=== PATIENT | female | born 1975 | race Caucasian/White ===

== ENCOUNTER 2019-03-04 18:42 | Emergency (ER) | payer OTHER ==
[2019-03-04] MEDS ORDERED: OXYCODONE-ACETAMINOPHEN 5-325 MG TABLET PO ONE (19:00)
--- NOTE | 2019-03-04 20:07 | RADIOLOGY REPORT (SQ) ---
EXAM DESCRIPTION: SHOULDER LEFT 2 OR MORE VIEWS COMPLETED DATE/TIME: 03/04/2019 7:16 pm REASON FOR STUDY: fall injury COMPARISON: None. NUMBER OF VIEWS: Three views. TECHNIQUE: Internal rotation, external rotation, and Y view images acquired of the left shoulder. LIMITATIONS: None. FINDINGS: MINERALIZATION: Normal. BONES: Fracture of the humeral head -greater tuberosity and anterior- inferior glenohumeral dislocati on. VISUALIZED LUNGS AND RIBS: No pneumothorax. No rib fracture. SOFT TISSUES: No radiopaque foreign body. OTHER: No other significant finding. IMPRESSION: Fracture of the humeral head -greater tuberosity and anterior- inferior glenohumeral dis location. TECHNICAL DOCUMENTATION: JOB ID: [id number] [place]-72 2010 [employer]- All Rights Reserved Reading location - IP/workstation name: [email or web address]
[2019-03-04] MEDS ORDERED: NORMAL SALINE 1000 ML 1,000 ML IV ONE (20:13)
[2019-03-04] MEDS ORDERED: ONDANSETRON HCL INJ/PF 4 MG/2 ML SDV IV ONE (20:13)
[2019-03-04] MEDS ORDERED: FENTANYL CITRATE INJ/PF 100 MCG/2 ML AMPUL IV ONE (20:13)
[2019-03-04] MEDS ORDERED: PROPOFOL INJ 200 MG/20 ML VIAL IV ONE ×2 (20:27→21:22)
--- NOTE | 2019-03-04 20:29 | ER Document Report ---
ED General - General Chief Complaint: Shoulder Injury Stated Complaint: DISLOCATED SHOULDER Time Seen by Provider: 03/04/19 18:59 Primary Care Provider: DOROTHEA FLOYD MD [ACTIVE PROVISIONAL STAFF] - Follow up tomorrow (local orthopedic surgeon ) Notes: Patient is a 43-year-old female that presents to the emergency department for chief complaint of left arm injury. Patient reports shortly prior to ED arrival, she was in the bathtub, went to reach for some soap, held on with a towel rack with her right arm, when she reached with her left, the towel rack gave way, and she landed back on her left arm, she felt severe pain as soon as her body came down on her arm. She is been having severe pain since then, currently rates it as a 10 out of 10 in her left shoulder. She is right-handed. She describes the pain as a constant throbbing and aching sensation. Denies prior injury to that shoulder. She last ate at 1 PM today. Denies any numbness, tingling or weakness in her arm, only the pain. Denies any other injuries, denies head injury or neck injury. Past Medical History: Hypothyroidism Past Surgical History: Denies any recent or pertinent surgical history Social History: Denies tobacco, alcohol or drug use. Family History: Reviewed and noncontributory for presenting illness Allergies: Reviewed, see documented allergy list. REVIEW OF SYSTEMS: Other than noted above, the 12 point review of systems was reviewed with the patient and were negative, all pertinent findings are included in the HPI. PHYSICAL EXAMINATION: Vital signs reviewed, nursing noted reviewed. GENERAL: Patient is obese, appears to be in significant pain. HEAD: Atraumatic, normocephalic. EYES: Eyes appear normal, extraocular movements intact, sclera anicteric, conjunctiva are normal. ENT: nares patent, oropharynx clear without exudates. Moist mucous membranes. NECK: Normal range of motion, supple without lymphadenopathy LUNGS: Breath sounds clear to auscultation bilaterally and equal. No wheezes rales or rhonchi. HEART: Regular rate and rhythm without murmurs ABDOMEN: Soft, nontender, normoactive bowel sounds. No rebound, guarding, or rigidity. No masses appreciated. EXTREMITIES: Gross deformity to the left shoulder, with significant tenderness to palpation, no ecchymosis, or lacerations noted. Pain with any minimal range of motion of the shoulder. The elbow is unremarkable, as is the wrist, neurovascularly intact distally in all extremities. The rest of her extremity exam is grossly unremarkable. NEUROLOGICAL: No focal neurological deficits. Moves all extremities spontaneously Motor and sensory grossly intact on exam. PSYCH: Normal mood, normal affect. SKIN: Warm, Dry, normal turgor, no rashes or lesions noted on exposed skin TRAVEL OUTSIDE OF THE [place] IN LAST 30 DAYS: No - Related Data Allergies/Adverse Reactions: No Known Drug Allergies Allergy (Verified 03/04/19 18:47) Past Medical History - Social History Smoking Status: Never Smoker Chew tobacco use (# tins/day): No Frequency of alcohol use: None Drug Abuse: None Family History: Reviewed & Not Pertinent Patient has suicidal ideation: No Patient has homicidal ideation: No Physical Exam - Vital signs Vitals: Pulse Resp BP Pulse Ox 69 15 144/93 H 100 03/04/19 20:59 03/04/19 20:59 03/04/19 20:59 03/04/19 20:59 Course - Re-evaluation Re-evalutation: Patient seen and examined, vital signs reviewed, patient appeared to be in pain significantly, gross deformity to her left shoulder, x-ray obtained, demonstrated fracture dislocation of the left humerus, patient was treated with fentanyl and Zofran, and started on IV fluids, and procedural sedation, and closed reduction was performed, after consents were obtained, as noted and procedure section, patient tolerated well, was placed in shoulder immobilizer, and advised to follow-up with orthopedic surgery, she is given a prescription for oxycodone, advised minimal manipulation of her shoulder until she is seen by orthopedics, she does have a fracture associated with the tuberosity of the humerus, which can lead to recurrence of dislocation, patient was understanding of this, and agreed with plan of care was discharged home in stable and much improved condition. - Vital Signs Vital signs: Temp Pulse Resp BP Pulse Ox 61 20 117/79 99 03/04/19 21:11 03/04/19 22:45 03/04/19 22:45 03/04/19 22:45 Procedures - Conscious Sedation Conscious sedation Consent obtained: Yes Last meal: 1300 Prior complications: Procedural sedation Normal healthy pt.: P1. - ASA Classification Airway Evaluation: Normal anatomy Mallampati Classification: Class 2 Used during procedure: Suction available, IV access obtained, Pulse ox on pt., gambling monitor on pt. Medications administered: Diprivan - 100mg Reversal agents: None I personally performed/intraservice time: Sedation, Procedure, 30 min or less Complications: No - Joint Reduction/Fracture Care Left Shoulder Consent obtained: Yes Conscious sedation: Yes Pre-procedure NV exam: Yes Fracture: Closed Post-procedure NV exam: Yes Post-reduction x-ray: Joint reduced Reduction attempts: 2 Complications: No Notes: After consents are obtained, patient was sedated using propofol, after good anesthesia, using traction countertraction technique, the patient's shoulder was reduced, x-ray was obtained, and the shoulder had dislocated again, patient was given additional propofol, and was relocated and reduced again, x-ray demonstrated anatomical alignment of the shoulder, patient's pain was improved, patient tolerate it well, without complication. Discharge - Discharge Clinical Impression: Fracture dislocation of left shoulder joint Qualifiers: Encounter type: initial encounter Fracture type: closed Qualified Code(s): S42.92XA - Fracture of left shoulder girdle, part unspecified, initial encounter for closed fracture Condition: Stable Disposition: HOME, SELF-CARE Instructions: Shoulder Dislocation ([facility]) Additional Instructions: Please follow-up with an orthopedic surgeon when you get back to [place], keep your shoulder in the shoulder immobilizer as much as possible, keep your arm across your chest. Take the pain medication as directed. If you have recurrence of your symptoms, or severe pain or feel like it falls out of place again, go to the nearest emergency department to be reevaluated. Prescriptions: Oxycodone HCl [Oxy-Ir 5 mg Tablet] 5 mg PO Q6H PRN #20 tab PRN Reason: shoulder pain Referrals: DOROTHEA FLOYD MD [ACTIVE PROVISIONAL STAFF] - Follow up tomorrow (local orthopedic surgeon )
--- NOTE | 2019-03-04 21:52 | RADIOLOGY REPORT (SQ) ---
EXAM DESCRIPTION: XR SHOULDER 2 OR MORE VIEWS COMPLETED DATE/TME: 03/04/2019 21:12 CLINICAL HISTORY: 43 years, Female, post reduction Compared to 03/04/2019 at 7:19 PM. FINDINGS: There is now anatomic alignment of the left shoulder status post reduction.
[2019-03-04] MEDS ORDERED: HYDROMORPHONE HCL INJ/PF 2 MG/ML AMPULE IV ONE (22:02)
[2019-03-04 22:50] VITALS: BP 117/79
== END 2019-03-04 23:37 | disposition home or self-care (01) ==
LOC: ER 18:42
DX: S42.92XA Fracture of left shoulder girdle, part unspecified, initial encounter for closed fracture (principal); W18.2XXA Fall in (into) shower or empty bathtub, initial encounter; Y93.E1 Activity, personal bathing and showering; Y92.002 Bathroom of unspecified non-institutional (private) residence as the place of occurrence of the external cause
CPT/HCPCS: 99283; 96361; 99152; 96374; 96375; 73030; 23575; L3650; J3010; J1170; J2405; J7030; J2704